=== PATIENT | female | born 1995 | race African-American/Black ===

== ENCOUNTER 2017-05-29 01:59 | Emergency (ER) | payer MEDICAID ==
[~2017-05-29 01:59] MED LIST: CEPH500T PO
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
[2017-05-29 04:59] LABS: AUTOMATED NEUTROPHIL # 5.6 TH/MM3 (1.8-7.7); BASOPHIL % 0.5 % (0.0-2.0); EOSINOPHIL # 0.1 TH/MM3 (0-0.4); EOSINOPHIL % 1.4 % (0.0-4.0); HEMATOCRIT 28.3 % (35.0-46.0); HEMO FLAGS DIFF FINAL; LYMPH % 12.2 % (9.0-44.0); LYMPHOCYTE # 0.9 TH/MM3 (1.0-4.8); MEAN CELL VOLUME 81.2 FL (80.0-100.0); MEAN CORPUSCULAR HEMOGLOBIN 26.8 PG (27.0-34.0); MONO % 8.3 % (0.0-8.0); NEUT % 77.6 % (16.0-70.0); PLATELET COUNT 236 TH/MM3 (150-450); RED BLOOD COUNT 3.49 MIL/MM3 (4.00-5.30); RED CELL DISTRIBUTION WIDTH 13.6 % (11.6-17.2); WHITE BLOOD COUNT 7.2 TH/MM3 (4.0-11.0)
[2017-05-29] MEDS ORDERED: ACETAMINOPHEN 325 MG TAB PO ONE (05:00)
[2017-05-29] MEDS ORDERED: SODIUM CHLOR 0.9% 1000 ML INJ 1,000 ML IV ONE (05:00)
[2017-05-29 05:19] LABS: ALT (GPT) 10 U/L (9-42); ANION GAP 8 MEQ/L (5-15); AST (GOT) 19 U/L (16-38); BICARBONATE 23.1 MEQ/L (21.0-32.0); BLOOD UREA NITROGEN 3 MG/DL (7-18); CHLORIDE 106 MEQ/L (98-107); GLOMERULAR FILTRATION RATE 188 ML/MIN (>89); POTASSIUM 3.5 MEQ/L (3.5-5.1); SODIUM (NA) 137 MEQ/L (136-145)
[2017-05-29 05:22] LABS: ALKALINE PHOSPHATASE 205 U/L (45-117); TOTAL BILIRUBIN ADULT 0.3 MG/DL (0.2-1.0)
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
[2017-05-29 05:36] VITALS: BP 94/56; PULSE 87; RESP 18; TEMP 98; O2SAT 100
--- NOTE | 2017-05-29 05:58 | RADRPT ---
EXAM DATE/TIME: 05/29/2017 05:15 [place] COMPARISON: No previous studies available for comparison. INDICATIONS : Pain in pelvis no known injury, hurts when patient lifts legs. MEDICAL HISTORY : None. SURGICAL HISTORY : None. ENCOUNTER: Initial ACUITY: 1 day PAIN SCORE: 0/10 LOCATION: Bilateral pelvis FINDINGS: A single frontal view of the pelvis demonstrates no evidence of fracture. The bony pelvic ring is in tact. Bony mineralization is normal. A fetus is present with vertex directed inferiorly. The soft t issues are intact. CONCLUSION: 1. Fetus present in pelvis with head directed inferiorly. No acute bony abnormality. William Malone MD on May 29, 2017 at 5:55 Board Certified Radiologist. This report was verified electronically.
[2017-05-29 07:04] LABS: BACTERIA, URINE FEW /hpf; BLOOD, URINE NEG (NEG); GLUCOSE,URINE NEG (NEG); KETONE, URINE NEG (NEG); MUCUS URINE FEW /lpf (OCC); NITRITE,URINE NEG (NEG); SQUAMOUS EPITHELIAL CELL URINE 6 /hpf (0-5); URINE COLOR LIGHT-YELLOW (YELLW/STRAW)
[2017-05-29 07:05] LABS: COMMENT (UR) CULTURE INDICATED; CULTURE IF INDICATED CULTURE INDICATED
[2017-05-29] MEDS ORDERED: MACR100C2 PO (07:21)
[2017-05-29 07:30] VITALS: BP 97/64; PULSE 96; RESP 17; O2SAT 100
[2017-05-29] MEDS ORDERED: cefTRIAXone INJ 1,000 MG in SODIUM CHLORIDE 0.9% INJ 100 ML IV ONE (07:30)
[2017-05-29 08:38] VITALS: BP 93/54
== END 2017-05-29 08:50 | disposition home or self-care (01) ==
LOC: HOBED 01:59 → NEPE 08:50
DX: O26.893 Other specified pregnancy related conditions, third trimester (principal); R10.2 Pelvic and perineal pain; R82.90 Unspecified abnormal findings in urine; V48.1XXA Car passenger injured in noncollision transport accident in nontraffic accident, initial encounter; Y93.89 Activity, other specified; Y92.410 Unspecified street and highway as the place of occurrence of the external cause; Z3A.35 35 weeks gestation of pregnancy
CPT/HCPCS: 72170; 80053; 81001; 85025; 86901; 87086; 96361; 96365; 99284; J0696; J7030